=== PATIENT | female | born 2000 | race African-American/Black ===

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

== ENCOUNTER 2024-03-12 13:51 | Emergency (ER) | payer OTHER ==
[~2024-03-12] VITALS: Ht 162.6 cm; Wt 75.0 kg
[2024-03-12 13:58] VITALS: TEMP 98.2; O2SAT 99
[2024-03-12] MEDS: IBUPROFEN 600MG TABLET PO NR (16:24)
[2024-03-12] MEDS ORDERED: NAPR-681 PO (16:34)
[2024-03-12 16:41] VITALS: BP 105/68; PULSE 70; RESP 13
== END 2024-03-12 17:08 | disposition home or self-care (01) ==
LOC: ER 13:51
DX: S93.601A Unspecified sprain of right foot, initial encounter (principal); Z91.018 Allergy to other foods; Y04.0XXA Assault by unarmed brawl or fight, initial encounter; Y93.89 Activity, other specified; Y92.89 Other specified places as the place of occurrence of the external cause; Y99.8 Other external cause status
CPT/HCPCS: 73610; 73630; 99284; Z7610

== ENCOUNTER 2024-10-02 19:49 | Emergency (ER) | payer MEDICAID, OTHER ==
[~2024-10-02] VITALS: Ht 149.9 cm; Wt 70.0 kg
[~2024-10-02 19:49] MED LIST changes: +NAPR-681 PO
[2024-10-02 20:03] VITALS: TEMP 36.7; O2SAT 100
[2024-10-02 20:27] LABS: CLARITY URINE CLOUDY (CLEAR); COLOR URINE YELLOW (YELLOW); GLUCOSE URINE NEGATIVE (NEGATIVE); KETONES URINE NEGATIVE (NEGATIVE); LEUKOCYTE ESTERASE URINE 3+ (NEGATIVE); NITRITE URINE NEGATIVE (NEGATIVE); OCCULT BLOOD URINE 2+ (NEGATIVE); PH URINE 6.5 (4.5-8.0); PROTEIN URINE 1+ (NEGATIVE); SPECIFIC GRAVITY URINE 1.011 (1.005-1.030); UROBILINOGEN URINE 0.2 E.U./dL (0.2-1.0)
[2024-10-02 20:44] LABS: BASOPHILS % 0.4 % (0.0-2.0); EOSINOPHILS % 0.4 % (0.0-5.0); HEMATOCRIT. 41.7 % (36.0-48.0); HEMOGLOBIN. 14.1 g/dL (12.0-16.0); LYMPHOCYTES % 15.2 % (20.0-50.0); MEAN CORPUSCULAR HEMOGLOBIN 30.5 pg (28.0-32.0); MEAN CORPUSCULAR HGB CONC 33.9 g/dL (31.0-37.0); MEAN PLATELET VOLUME 8.2 fl (7.4-10.4); MONOCYTES % 5.7 % (2.0-8.0); NEUTROPHILS % 78.3 % (40.0-76.0); PLATELET 337 x1000/uL (130-400); RED BLOOD CELL COUNT 4.63 mill/uL (4.2-5.4); RED CELL DISTRIBUTION WIDTH 14.3 % (11.6-14.6); WHITE BLOOD COUNT 13.1 x1000/uL (4.5-11.0)
[2024-10-02 20:51] LABS: CHLORIDE 101 mEq/L (98-107); POTASSIUM 3.7 mEq/L (3.5-5.1); SODIUM 138 mEq/L (136-145)
[2024-10-02 20:53] LABS: CARBON DIOXIDE 27 mEq/L (21-32)
[2024-10-02 20:54] LABS: CALCIUM 9.3 mg/dL (8.7-10.4)
[2024-10-02 20:58] LABS: CREATININE 0.6 mg/dL (0.6-1.0)
[2024-10-02 20:59] LABS: GLUCOSE 115 mg/dL (70-105); UREA NITROGEN BLOOD 8 mg/dL (9-23)
[2024-10-02 21:00] LABS: ALANINE AMINOTRANSFERASE 13 IU/L (10-49); ALBUMIN 4.7 g/dL (3.2-4.8)
[2024-10-02 21:01] LABS: ASPARTATE AMINOTRANSFERASE 15 IU/L (<34); BILIRUBIN DIRECT 0.2 mg/dL (<=3.0); BILIRUBIN TOTAL 0.6 mg/dL (0.1-1.0); PROTEIN TOTAL 8.1 g/dL (6.0-8.3)
[2024-10-02 21:39] LABS: BACTERIA URINE TRACE; SQUAMOUS EPITHELIAL CELL URINE FEW /lpf (RARE/1+); WBC URINE TNTC /hpf (0-2)
[2024-10-02] MEDS: MAGNESIUM/ALUMINUM HYDROXIDE/SIMETHICONE 30ML UDC PO ONE (22:28)
[2024-10-02] MEDS: ONDANSETRON 4MG ODT PO ONE (22:28)
[2024-10-02] MEDS ORDERED: CEPH500T MT (22:33)
[2024-10-02 23:27] VITALS: BP 109/65; PULSE 100; RESP 16; O2SAT 98
[2024-10-03 00:05] LABS: HCG SCREEN NEGATIVE
== END 2024-10-02 23:38 | disposition home or self-care (01) ==
LOC: ER 19:49
DX: N39.0 Urinary tract infection, site not specified (principal); R10.84 Generalized abdominal pain; F20.9 Schizophrenia, unspecified; F10.90 Alcohol use, unspecified, uncomplicated; F31.9 Bipolar disorder, unspecified; Z32.02 Encounter for pregnancy test, result negative; Z79.899 Other long term (current) drug therapy; Y90.9 Presence of alcohol in blood, level not specified
CPT/HCPCS: 99283; 80076; 80048; 81003; 81025; 84703; 83690; 85025; 87086; 87186; 87077; 36415; Q0162

== ENCOUNTER 2024-10-11 16:59 | Emergency (ER) | payer OTHER ==
[~2024-10-11] VITALS: Ht 149.9 cm; Wt 72.5 kg
[~2024-10-11 16:59] MED LIST changes: +CEPH500T MT
[2024-10-11 17:11] VITALS: O2SAT 98
[2024-10-11 17:12] VITALS: BP 117/83; PULSE 93; RESP 16; TEMP 36.9; O2SAT 99
[2024-10-11 21:01] LABS: CLARITY URINE CLOUDY (CLEAR); COLOR URINE YELLOW (YELLOW); GLUCOSE URINE NEGATIVE (NEGATIVE); KETONES URINE NEGATIVE (NEGATIVE); LEUKOCYTE ESTERASE URINE 1+ (NEGATIVE); NITRITE URINE NEGATIVE (NEGATIVE); OCCULT BLOOD URINE NEGATIVE (NEGATIVE); PROTEIN URINE NEGATIVE (NEGATIVE); SPECIFIC GRAVITY URINE 1.025 (1.005-1.030); UROBILINOGEN URINE 0.2 E.U./dL (0.2-1.0)
[2024-10-11] MEDS: DOXYCYCLINE HYCLATE 100MG CAPSULE PO ONE (21:30)
[2024-10-11] MEDS: CEFTRIAXONE SODIUM 1G VIAL IM ONE (21:30)
[2024-10-11] MEDS ORDERED: TOPUD PO (22:05)
[2024-10-11] MEDS ORDERED: VALA100044 PO (22:05)
[2024-10-11] MEDS ORDERED: DOXY100T2 PO (22:05)
[2024-10-11 22:50] LABS: BACTERIA URINE 2+; RBC URINE 0-2 /hpf (0-2); SQUAMOUS EPITHELIAL CELL URINE 2+ /lpf (RARE/1+)
== END 2024-10-11 22:42 | disposition home or self-care (01) ==
LOC: ER 16:59
DX: A60.09 Herpesviral infection of other urogenital tract (principal); F20.9 Schizophrenia, unspecified; F31.9 Bipolar disorder, unspecified; Z79.899 Other long term (current) drug therapy
CPT/HCPCS: 81003; 81025; 96372; 99284; J0696; Z7610 ×2